=== PATIENT | male | born 1995 | race Caucasian/White ===

== ENCOUNTER 2017-09-24 14:03 | Inpatient (IN) | payer MEDICAID, OTHER ==
[~2017-09-24] VITALS: Ht 170.2 cm; Wt 78.2 kg
[~2017-09-24 14:03] MED LIST: ALBU8.5H3 IH; AZEL137S2 NASAL; FLUT110HFA IH; FLUT16H NASAL; HYDR10SY9 PO; P-EP-31 PO; POLY17PO3 PO; SENN-34 PO
[2017-09-24] MEDS ORDERED: LORazepam 2 MG/ML VIAL IM ONE (15:00)
[2017-09-24] MEDS ORDERED: HALOPERIDOL LACTATE 5 MG/ML VIAL IM ONE (15:00)
[2017-09-24] MEDS ORDERED: DiphenhydrAMINE HCL 50 MG/ML VIAL IM ONE (15:00)
[2017-09-24 15:26] LABS: BASOPHILS % (AUTO) 0.3 % (0.0-2.0); EOSINOPHILS % (AUTO) 1.2 % (1.0-6.0); HEMATOCRIT 44.1 % (41-53); HEMOGLOBIN 15.2 g/dL (13.5-17.5); LYMPHOCYTES # (AUTO) 1.8 K/uL (1.0-4.8); LYMPHOCYTES % (AUTO) 24.6 % (22.0-44.0); MEAN CORPUSCULAR HGB CONC 34.5 G/dL (31.0-37.0); MEAN CORPUSCULAR VOLUME 87 fL (80-100); MONOCYTES # (AUTO) 0.4 K/uL (0.1-1.0); MONOCYTES % (AUTO) 5.5 % (2.0-9.0); NEUTROPHILS # (AUTO) 4.9 K/uL (1.8-7.7); NEUTROPHILS % (AUTO) 68.4 % (40.0-70.0); PLATELET COUNT (AUTO) 336 K/uL (150-450); RED BLOOD CELL COUNT(AUTO) 5.08 MIL/uL (4.50-5.90); RED CELL DISTRIBUTION WIDTH 12.8 % (11.5-14.5); WHITE BLOOD COUNT (AUTO) 7.1 K/uL (4.5-11.0)
[2017-09-24 15:28] LABS: ANION GAP 8 mmol/L (8-16); CALCIUM, TOTAL 9.2 mg/dL (8.8-10.5); CARBON DIOXIDE 29 mmol/L (22-29); CHLORIDE 103 mmol/L (98-107); CREATININE 0.83 mg/dL (0.60-1.30); GLOMERULAR FILTR. RATE CALC > 60 mL/min (>60); POTASSIUM 3.9 mmol/L (3.5-5.1); SODIUM SERUM 140 mmol/L (136-145); UREA NITROGEN, BLOOD 9 mg/dL (7-18)
[2017-09-24 15:33] LABS: ALANINE AMINOTRANSFERASE 49 U/L (12-78); ALBUMIN 4.6 g/dL (3.4-5.0); ASPARTATE AMINOTRANSFERASE 24 U/L (15-37); BILIRUBIN,TOTAL 0.4 mg/dL (0.1-1.0); TOTAL PROTEIN, SERUM 7.8 g/dL (6.4-8.2)
[2017-09-24] MEDS ORDERED: HALOPERIDOL 5 MG TABLET PO PRN (17:30)
[2017-09-24] MEDS: ZOLPIDEM TARTRATE 10 MG TABLET PO PRN (21:04)
[2017-09-24 21:11] VITALS: BP 132/82
[2017-09-24] MEDS ORDERED: ALBUTEROL SULFATE HFA 90 MCG/PUFF 8 GM INHALER IH PRN (21:30)
[2017-09-25 06:11] VITALS: BP 140/90
[2017-09-25 08:14] VITALS: BP 133/87
[2017-09-25] MEDS: LORazepam 2 MG TABLET PO PRN ×2 (08:31→16:24)
[2017-09-25 09:07] LABS: CHOL/HDL RATIO 7.3 (4.2-7.3); THYROID STIMULATING HORMONE 0.85 uIU/mL (0.36-3.74)
[2017-09-25 11:26] LABS: HEMOGLOBIN A1C 5.3 % (4.5-6.2)
[2017-09-25] MEDS ORDERED: IBUPROFEN 400 MG TABLET PO PRN (14:30)
[2017-09-25] MEDS ORDERED: ACETAMINOPHEN 325 MG TABLET PO PRN (14:30)
[2017-09-25] MEDS ORDERED: POLYETHYLENE GLYCOL 3350 17 GM PACKET PO PRN (14:45)
[2017-09-25 16:00] VITALS: BP 136/83
[2017-09-25] MEDS: TRIHEXYPHENIDYL HCL 2 MG TABLET PO SCH (16:24)
[2017-09-25] MEDS: SENNA 187 MG TABLET PO SCH (16:24)
[2017-09-25] MEDS: ALBUTEROL SULFATE HFA 90 MCG/PUFF 8 GM INHALER IH PRN (16:25)
[2017-09-25] MEDS: ZOLPIDEM TARTRATE 10 MG TABLET PO PRN (20:53)
[2017-09-25] MEDS: RisperiDONE 3 MG TABLET PO SCH (20:53)
[2017-09-26 05:48] VITALS: BP 135/87
[2017-09-26 08:06] LABS: HEMOGLOBIN A1C 5.1 % (4.5-6.2)
[2017-09-26] MEDS: PANTOPRAZOLE SODIUM 40 MG DR TABLET PO SCH (08:11)
[2017-09-26] MEDS: MONTELUKAST SODIUM 10 MG TABLET PO SCH (08:11)
[2017-09-26] MEDS: SENNA 187 MG TABLET PO SCH ×2 (08:11→17:49)
[2017-09-26] MEDS: TRIHEXYPHENIDYL HCL 2 MG TABLET PO SCH ×3 (08:11→17:49)
[2017-09-26] MEDS: PARoxetine HCL 20 MG TABLET PO SCH (08:11)
[2017-09-26] MEDS: ALBUTEROL SULFATE HFA 90 MCG/PUFF 8 GM INHALER IH PRN ×3 (08:11→18:12)
[2017-09-26 08:34] VITALS: BP 148/84
[2017-09-26 08:42] LABS: THYROID STIMULATING HORMONE 0.63 uIU/mL (0.36-3.74)
[2017-09-26] MEDS ORDERED: PROMETHAZINE HCL 25 MG/ML VIAL IM ONE (12:30)
[2017-09-26 16:17] VITALS: BP 139/75
[2017-09-26] MEDS: LORazepam 2 MG TABLET PO PRN (17:49)
[2017-09-26] MEDS: ZOLPIDEM TARTRATE 10 MG TABLET PO PRN (20:17)
[2017-09-26] MEDS: RisperiDONE 3 MG TABLET PO SCH (20:17)
[2017-09-27 06:35] VITALS: BP 111/77
[2017-09-27] MEDS: PANTOPRAZOLE SODIUM 40 MG DR TABLET PO SCH (08:30)
[2017-09-27] MEDS: PARoxetine HCL 20 MG TABLET PO SCH (08:30)
[2017-09-27] MEDS: SENNA 187 MG TABLET PO SCH (08:30)
[2017-09-27] MEDS: MONTELUKAST SODIUM 10 MG TABLET PO SCH (08:30)
[2017-09-27] MEDS: TRIHEXYPHENIDYL HCL 2 MG TABLET PO SCH ×2 (08:31→12:57)
[2017-09-27 09:25] VITALS: BP 130/74
[2017-09-27] MEDS ORDERED: PANT40TA25 PO (12:11)
[2017-09-27] MEDS ORDERED: RISP3 PO (12:11)
[2017-09-27] MEDS ORDERED: MONT10TA21 PO (12:11)
[2017-09-27] MEDS ORDERED: TRIH2TAB3 PO (12:11)
[2017-09-27] MEDS ORDERED: PARO20TA24 PO (12:11)
== END 2017-09-27 13:30 | disposition home or self-care (01) | DRG 750 ==
LOC: EMS 14:06 → UNDOADMIN 18:31 → B3A 18:31
DX: F25.0 Schizoaffective disorder, bipolar type (principal); F23 Brief psychotic disorder; E78.5 Hyperlipidemia, unspecified; F79 Unspecified intellectual disabilities; J44.9 Chronic obstructive pulmonary disease, unspecified; K59.09 Other constipation; Z79.899 Other long term (current) drug therapy
CPT/HCPCS: 83036; 84439; 84443; 96372; 99285; G0480; J1200; J1630; J2060; J2550; J3535

== ENCOUNTER 2018-01-23 19:37 | Inpatient (IN) | payer MEDICAID, OTHER ==
[~2018-01-23] VITALS: Ht 172.7 cm; Wt 82.2 kg
[~2018-01-23 19:37] MED LIST changes: -ALBU8.5H3 IH; -AZEL137S2 NASAL; -FLUT110HFA IH; -FLUT16H NASAL; -HYDR10SY9 PO; +MONT10TA21 PO; -P-EP-31 PO; +PANT40TA25 PO; +PARO20TA24 PO; -POLY17PO3 PO; +RISP3 PO; +TRIH2TAB3 PO
[2018-01-23] MEDS ORDERED: ACETAMINOPHEN 500 MG TABLET PO ONE (19:45)
[2018-01-23 20:04] LABS: BASOPHILS % (AUTO) 0.4 % (0.0-2.0); HEMATOCRIT 42.3 % (41-53); HEMOGLOBIN 14.7 g/dL (13.5-17.5); LYMPHOCYTES # (AUTO) 2.4 K/uL (1.0-4.8); LYMPHOCYTES % (AUTO) 27.2 % (22.0-44.0); MEAN CORPUSCULAR HEMOGLOBIN 29.8 pg (26.0-34.0); MEAN CORPUSCULAR HGB CONC 34.7 G/dL (31.0-37.0); MEAN CORPUSCULAR VOLUME 86 fL (80-100); MONOCYTES # (AUTO) 0.5 K/uL (0.1-1.0); MONOCYTES % (AUTO) 5.2 % (2.0-9.0); NEUTROPHILS # (AUTO) 5.8 K/uL (1.8-7.7); NEUTROPHILS % (AUTO) 66.2 % (40.0-70.0); PLATELET COUNT (AUTO) 337 K/uL (150-450); RED BLOOD CELL COUNT(AUTO) 4.93 MIL/uL (4.50-5.90); RED CELL DISTRIBUTION WIDTH 12.9 % (11.5-14.5)
[2018-01-23] MEDS ORDERED: LORazepam 2 MG TABLET PO PRN (20:15)
[2018-01-23] MEDS ORDERED: HALOPERIDOL 5 MG TABLET PO PRN (20:15)
[2018-01-23 20:24] LABS: AMPHET/METH SCREEN,URINE NEGATIVE (NEGATIVE); BARBITURATE SCREEN, URINE NEGATIVE (NEGATIVE); BENZODIAZEPINES SCREEN,URINE NEGATIVE (NEGATIVE); CANNABINOID SCREEN,URINE NEGATIVE (NEGATIVE); COCAINE SCREEN,URINE NEGATIVE (NEGATIVE); METHADONE SCREEN, URINE NEGATIVE (NEGATIVE); OPIATE SCREEN,URINE NEGATIVE (NEGATIVE); PHENCYCLIDINE SCREEN,URINE NEGATIVE (NEGATIVE)
[2018-01-23 20:25] LABS: ANION GAP 9 mmol/L (8-16); CALCIUM, TOTAL 9.4 mg/dL (8.8-10.5); CARBON DIOXIDE 29 mmol/L (22-29); CHLORIDE 103 mmol/L (98-107); CREATININE 0.82 mg/dL (0.60-1.30); GLOMERULAR FILTR. RATE CALC > 60 mL/min (>60); GLUCOSE,RANDOM 108 mg/dL (70-110); SODIUM SERUM 141 mmol/L (136-145); UREA NITROGEN, BLOOD 10 mg/dL (7-18)
[2018-01-23 20:26] LABS: APPEARANCE,URINE CLEAR (CLEAR); BILIRUBIN,URINE NEGATIVE (NEGATIVE); GLUCOSE, URINE (UA) NEGATIVE (NEGATIVE); KETONES,URINE NEGATIVE (NEGATIVE); LEUKOCYTE ESTERASE ,URINE NEGATIVE (NEGATIVE); NITRATE,URINE NEGATIVE (NEGATIVE); OCCULT BLOOD,URINE NEGATIVE (NEGATIVE); PROTEIN,URINE NEGATIVE (NEGATIVE); UROBILINOGEN,URINE 0.2 mg/dL (<=1.0)
[2018-01-23 20:30] LABS: ALANINE AMINOTRANSFERASE 74 U/L (12-78); ALBUMIN 4.9 g/dL (3.4-5.0); ALKALINE PHOSPHATASE 53 U/L (46-116); ASPARTATE AMINOTRANSFERASE 33 U/L (15-37); BILIRUBIN,TOTAL 0.4 mg/dL (0.1-1.0); TOTAL PROTEIN, SERUM 8.2 g/dL (6.4-8.2)
[2018-01-23] MEDS: ZOLPIDEM TARTRATE 10 MG TABLET PO PRN (21:37)
[2018-01-23 23:30] VITALS: BP 125/76
[2018-01-24] MEDS ORDERED: PNEUMOCOCCAL VACCINE POLYVALENT 0.5 ML VIAL [PPSV23] IM ONE (05:45)
[2018-01-24 08:48] VITALS: BP 116/82
[2018-01-24] MEDS: PARoxetine HCL 20 MG TABLET PO SCH (09:07)
[2018-01-24] MEDS: TRIHEXYPHENIDYL HCL 2 MG TABLET PO SCH ×3 (09:47→16:27)
[2018-01-24] MEDS: ALBUTEROL SULFATE HFA 90 MCG/PUFF 8 GM INHALER IH PRN (13:43)
[2018-01-24] MEDS ORDERED: ACETAMINOPHEN 325 MG TABLET PO PRN (16:30)
[2018-01-24] MEDS ORDERED: IBUPROFEN 400 MG TABLET PO PRN (16:30)
[2018-01-24 16:51] VITALS: BP 128/74
[2018-01-24] MEDS ORDERED: SENNA 187 MG TABLET PO PRN (19:45)
[2018-01-24] MEDS: RisperiDONE 3 MG TABLET PO SCH (20:11)
[2018-01-25 06:42] LABS: CHOL/HDL RATIO 6.6 (4.2-7.3)
[2018-01-25] MEDS: TRIHEXYPHENIDYL HCL 2 MG TABLET PO SCH ×3 (08:43→17:59)
[2018-01-25] MEDS: PANTOPRAZOLE SODIUM 40 MG DR TABLET PO SCH (08:43)
[2018-01-25] MEDS: MONTELUKAST SODIUM 10 MG TABLET PO SCH (08:43)
[2018-01-25] MEDS: PARoxetine HCL 20 MG TABLET PO SCH (08:43)
[2018-01-25 09:08] VITALS: BP 137/81
[2018-01-25] MEDS: ALBUTEROL SULFATE HFA 90 MCG/PUFF 8 GM INHALER IH PRN (13:19)
[2018-01-25 18:51] VITALS: BP 123/84
[2018-01-25] MEDS: ZOLPIDEM TARTRATE 10 MG TABLET PO PRN (20:19)
[2018-01-25] MEDS: RisperiDONE 3 MG TABLET PO SCH (20:19)
[2018-01-26] MEDS: PANTOPRAZOLE SODIUM 40 MG DR TABLET PO SCH (08:52)
[2018-01-26] MEDS: TRIHEXYPHENIDYL HCL 2 MG TABLET PO SCH ×3 (08:52→16:55)
[2018-01-26] MEDS: PARoxetine HCL 20 MG TABLET PO SCH (08:52)
[2018-01-26] MEDS: MONTELUKAST SODIUM 10 MG TABLET PO SCH (08:52)
[2018-01-26] MEDS: ALBUTEROL SULFATE HFA 90 MCG/PUFF 8 GM INHALER IH PRN (09:01)
[2018-01-26 09:47] VITALS: BP 133/90
[2018-01-26 17:00] VITALS: BP 129/87
[2018-01-26] MEDS: ZOLPIDEM TARTRATE 10 MG TABLET PO PRN (20:17)
[2018-01-26] MEDS: RisperiDONE 3 MG TABLET PO SCH (20:17)
[2018-01-27 06:40] VITALS: BP 152/87
[2018-01-27 09:12] VITALS: BP 126/66
[2018-01-27] MEDS: ALBUTEROL SULFATE HFA 90 MCG/PUFF 8 GM INHALER IH PRN (09:21)
[2018-01-27] MEDS: MONTELUKAST SODIUM 10 MG TABLET PO SCH (09:21)
[2018-01-27] MEDS: PARoxetine HCL 20 MG TABLET PO SCH (09:21)
[2018-01-27] MEDS: PANTOPRAZOLE SODIUM 40 MG DR TABLET PO SCH (09:21)
[2018-01-27] MEDS: TRIHEXYPHENIDYL HCL 2 MG TABLET PO SCH ×2 (09:21→13:00)
== END 2018-01-27 14:16 | disposition home or self-care (01) | DRG 750 ==
LOC: EMS 19:41 → 3EC 20:00 → 3EI 01-26 10:00
DX: F25.0 Schizoaffective disorder, bipolar type (principal); F79 Unspecified intellectual disabilities; I10 Essential (primary) hypertension; E78.5 Hyperlipidemia, unspecified; J45.909 Unspecified asthma, uncomplicated; K21.9 Gastro-esophageal reflux disease without esophagitis; K59.09 Other constipation; Z79.899 Other long term (current) drug therapy
CPT/HCPCS: G0480; J3535